=== PATIENT | male | born 1980 | race Caucasian/White ===

== ENCOUNTER 2019-12-01 08:23 | Emergency (ER) | payer OTHER ==
[~2019-12-01] VITALS: Ht 175.3 cm; Wt 101.6 kg
[2019-12-01] MEDS ORDERED: BENA25CA4 PO (08:31)
[2019-12-01] MEDS ORDERED: CLINDAMYCIN 600 MG in IV 1 EA IV ONE (09:00)
[2019-12-01] MEDS ORDERED: methylPREDNISolone 125MG 2ML VIAL IV ONE (09:00)
[2019-12-01 09:16] LABS: BASO # 0.1 10^3/uL (0.0-0.2); EOS # 0.5 10^3/uL (0.0-0.5); EOS % 5.4 % (0.0-3.0); HEMATOCRIT 49.9 % (42.0-52.0); HEMOGLOBIN 16.6 g/dl (13.5-17.5); LYMPH # 2.3 10^3/uL (1.5-5.0); MEAN CORPUSCULAR HEMOGLOBIN 28.7 pg (27.0-33.0); MEAN CORPUSCULAR HGB CONC 33.3 g/dl (32.0-36.5); MEAN CORPUSCULAR VOLUME 86.3 fl (80.0-96.0); MONO # 0.7 10^3/uL (0.0-0.8); MONO % 8.4 % (0.0-5.0); NEUTROPHILS # 5.1 10^3/uL (1.5-8.5); NEUTROPHILS % 58.7 % (36.0-66.0); PLATELET COUNT, AUTOMATED 330 10^3/uL (150-450); RED BLOOD COUNT 5.78 10^6/uL (4.30-6.10); WHITE BLOOD COUNT 8.7 10^3/uL (4.0-10.0)
--- NOTE | 2019-12-01 09:30 | REPVR ---
PROCEDURE INFORMATION: Exam: XR Right Hand Exam date and time: 12/01/2019 9:07 AM Age: 39 years old Clinical indication: Pain; Hand; Right; Patient HX: Stung by a bee 2 days ago; Additional info: R hand redness/swelling TECHNIQUE: Imaging protocol: XR Right hand. Views: 3 or more views. COMPARISON: No relevant prior studies available. FINDINGS: Bones/joints: No acute fracture. No dislocation. No focal cortical erosion. Chronic mild fracture deformity of the little finger metacarpal. Soft tissues: No radiopaque foreign body. Dorsal soft tissue swelling. IMPRESSION: No acute osseous abnormality or radiopaque foreign body. Electronically signed by: Sheryl Graff On 12/01/2019 09:29:53 AM
[2019-12-01 09:42] LABS: BLOOD UREA NITROGEN 13 MG/DL (7-18); CARBON DIOXIDE LEVEL 26 MEQ/L (21-32); CHLORIDE LEVEL 107 MEQ/L (98-107); CREATININE FOR GFR 0.93 MG/DL (0.70-1.30); GLOMERULAR FILTRATION RATE > 60.0 (>60); GLUCOSE, FASTING 87 MG/DL (70-100); POTASSIUM SERUM 4.3 MEQ/L (3.5-5.1); SODIUM LEVEL 140 MEQ/L (136-145)
[2019-12-01] MEDS ORDERED: CLEO150C PO (10:37)
[2019-12-01] MEDS ORDERED: PRED10TA2 PO (10:42)
[2019-12-01 10:48] VITALS: BP 138/85
== END 2019-12-01 11:26 | disposition home or self-care (01) ==
LOC: M ED 08:23
DX: S60.561A Insect bite (nonvenomous) of right hand, initial encounter (principal); L03.113 Cellulitis of right upper limb; W57.XXXA Bitten or stung by nonvenomous insect and other nonvenomous arthropods, initial encounter; Y92.9 Unspecified place or not applicable; Y93.9 Activity, unspecified; Y99.9 Unspecified external cause status; Z88.0 Allergy status to penicillin; Z88.6 Allergy status to analgesic agent
CPT/HCPCS: 36415; 73130; 80048; 85025; 87040; 96365; 96366; 96375; 99284; J2930

== ENCOUNTER 2020-06-26 17:07 | Emergency (ER) | payer OTHER ==
[~2020-06-26] VITALS: Ht 175.3 cm; Wt 106.1 kg
[~2020-06-26 17:07] MED LIST: BENA25CA4 PO; CLEO150C PO; PRED10TA2 PO
[2020-06-26] MEDS ORDERED: IBUP200C29 PO (17:15)
[2020-06-26] MEDS ORDERED: NS 1,000 ML IV ONE (18:40)
[2020-06-26] MEDS ORDERED: KETOROLAC 30 MG/ML 1ML VIAL IV ONE (18:40)
[2020-06-26 19:18] LABS: BASO # 0.1 10^3/uL (0.0-0.2); EOS # 0.6 10^3/uL (0.0-0.5); EOS % 5.4 % (0.0-3.0); HEMATOCRIT 49.8 % (42.0-52.0); HEMOGLOBIN 16.6 g/dl (13.5-17.5); LYMPH # 3.3 10^3/uL (1.5-5.0); LYMPH % 31.7 % (24.0-44.0); MEAN CORPUSCULAR HGB CONC 33.3 g/dl (32.0-36.5); MEAN CORPUSCULAR VOLUME 87.1 fl (80.0-96.0); NEUTROPHILS # 5.5 10^3/uL (1.5-8.5); NEUTROPHILS % 52.5 % (36.0-66.0); PLATELET COUNT, AUTOMATED 348 10^3/uL (150-450); RED BLOOD COUNT 5.72 10^6/uL (4.30-6.10); WHITE BLOOD COUNT 10.5 10^3/uL (4.0-10.0)
[2020-06-26 19:34] LABS: BLOOD UREA NITROGEN 14 MG/DL (7-18); CALCIUM LEVEL 9.2 MG/DL (8.5-10.1); CARBON DIOXIDE LEVEL 29 MEQ/L (21-32); CHLORIDE LEVEL 106 MEQ/L (98-107); CREATININE FOR GFR 0.79 MG/DL (0.70-1.30); GLOMERULAR FILTRATION RATE > 60.0 (>60); GLUCOSE, FASTING 104 MG/DL (70-100); POTASSIUM SERUM 4.2 MEQ/L (3.5-5.1); SODIUM LEVEL 140 MEQ/L (136-145)
[2020-06-26] MEDS ORDERED: PERCOCET 5MG/325MG TAB PO ONE (19:55)
--- NOTE | 2020-06-26 20:37 | REPVR ---
PROCEDURE INFORMATION: Exam: CT Head Without Contrast Exam date and time: 06/26/2020 7:59 PM Age: 40 years old Clinical indication: Pain; Headache; Additional info: Headache intractable TECHNIQUE: Imaging protocol: Computed tomography of the head without contrast. Radiation optimization: All CT scans at this facility use at least one of these dose optimization techniques: automated exposure control; mA and/or kV adjustment per patient size (includes targeted exams where dose is matched to clinical indication); or iterative reconstruction. COMPARISON: CT Head without contrast 06/07/2014 7:07 PM FINDINGS: Brain: No hemorrhage. Unremarkable white matter for the patient's age. No mass effect. No evolving territorial infarct. Cerebral ventricles: No ventriculomegaly. Bones/joints: Unremarkable. No acute fracture. Paranasal sinuses: Mild frontal sinus mucosal thickening. No fluid levels. Mastoid air cells: Visualized mastoid air cells are well aerated. Soft tissues: Unremarkable. IMPRESSION: No acute intracranial abnormality seen. Electronically signed by: Yana Leach On 06/26/2020 20:36:49 PM
[2020-06-26 22:13] VITALS: BP 132/83
== END 2020-06-26 22:15 | disposition home or self-care (01) ==
LOC: M ED 17:07
DX: R51.9 Headache, unspecified (principal); Z88.0 Allergy status to penicillin; Z88.4 Allergy status to anesthetic agent
CPT/HCPCS: 70450; 80048; 85025; 96361; 96374; 99284; J1885

== ENCOUNTER 2022-03-04 18:31 | Emergency (ER) | payer OTHER ==
[~2022-03-04] VITALS: Ht 177.8 cm; Wt 101.3 kg
[~2022-03-04 18:31] MED LIST changes: +IBUP200C29 PO
[2022-03-04 18:33] VITALS: BP 139/85
[2022-03-04] MEDS ORDERED: ACET-683 PO (18:56)
== END 2022-03-04 21:29 | disposition left against medical advice (07) ==
LOC: M ED 18:31
DX: Z53.21 Procedure and treatment not carried out due to patient leaving prior to being seen by health care provider (principal)